=== PATIENT | male | born 1985 | race Caucasian/White ===

== ENCOUNTER 2023-12-15 14:51 | Emergency (ER) | payer OTHER, SELFPAY ==
[2023-12-15 15:31] LABS: % Basophils 0.4 % (0-2); % Eosinophils 1.4 % (0-6); % Immature Granulocytes 0.3 % (0-0.5); % Lymphocytes 29.9 % (20.5-51.1); % Monocytes 7.2 % (1.7-9.3); % Neutrophils 60.8 % (42.2-75.2); Absolute Eosinophils 0.2 10^3/uL (0-0.7); Absolute Lymphocytes 3.4 10^3/uL (1.2-3.4); Absolute Monocytes 0.8 10^3/uL (0.1-0.6); Absolute Neutrophils 6.9 10^3/uL (1.4-6.5); Hematocrit 42.3 % (39.0-52.0); Hemoglobin 15.2 g/dL (13.0-18.0); Mean Corp Hgb Conc. 35.9 g/dL (33.0-37.0); Mean Corpuscular Hgb 30.3 pg (27.0-31.0); Mean Corpuscular Volume 84.4 fL (80.0-94.0); Mean Platelet Volume 9.5 fL (7.4-10.4); Nucleated Red Blood Cells % 0 % (-); Platelet Count 208 10^3/uL (130-400); Red Blood Cell Count 5.01 10^6/uL (4.70-6.10); Red Cell Dist. Width 12.2 % (11.5-14.5); White Blood Cell Count 11.3 10^3/uL (4.8-10.8)
[2023-12-15 15:50] LABS: ALT (SGPT) 42 U/L (0-50); AST (SGOT) 31 U/L (17-59); Albumin 4.9 g/dl (3.5-5.0); Alkaline Phosphatase 78 U/L (38-126); Blood Urea Nitrogen 11 mg/dl (9-20); Calcium 9.4 mg/dl (8.4-10.2); Carbon Dioxide 25 mmol/L (22-30); Chloride 104 mmol/L (98-107); Glucose 93 mg/dl (70-99); Potassium 4.1 mmol/L (3.5-5.1); Sodium 137 mmol/L (135-145); Total Bilirubin 0.7 mg/dl (0.2-1.3); Total Protein 7.6 g/dl (6.3-8.2); eGFR > 60.00
[2023-12-15 15:53] LABS: Troponin I < 0.012 ng/ml
[2023-12-15 19:30] VITALS: BP 135/92
[2023-12-15 19:31] VITALS: BMI 24.4
--- NOTE | 2023-12-15 20:03 | ED.GENMED ---
History of Present Illness
General
Chief Complaint: Breathing Problem
Source: patient
Exam Limitations: none
Time Seen by Provider: 12/15/23 19:24
Travel History
Have you had any contact with someone who has COVID-19?: No
Do you have any symptoms of coronavirus? Fever > 100 degrees, chills, cough, shortness of breath, sore throat, loss of taste or smell, muscle aches, or headache?: No
History of Present Illness
History of Present Illness:
This is a 38 year old male that comes in with c/o chest pain. States that yesterday he has some left sided chest pain. States that it would come and go and only lasted seconds. States that it was almost like when he had an extra heart beat or a
push. States that today he noticed this again and it would last 3-4 min and then go away. State that this happened a couple times today. States that he does have a slight headache. Denies any fever, chills, SOB, abd pain, nausea, vomiting, diarrhea,
dizziness, urinary burning .
Past History
Past History
ED Past Medical History: Arrthythmia (Atrial fib)
ED Past Surgical History: None
Social History
Tobacco: Non-smoker
Alcohol: Occasional
Personal:
Living: with family
Employment: Employed
Review of Systems
Review of Systems
All Other Systems: ROS reviewed and negative except as documented in HPI and ROS
Constitutional: Reports no symptoms; Denies fever or chills
EENT: Reports no symptoms
Respiratory: Reports no symptoms; Denies cough or trouble breathing
Cardiac: Reports chest pain
ABD/GI: Reports no symptoms; Denies abdominal pain, nausea, vomiting or diarrhea
: Reports no symptoms; Denies dysuria, frequency or urgency
Musculoskeletal: Reports no symptoms
Skin: Reports no symptoms
Neurological: Reports headache; Denies dizzy
Psychiatric: Reports no symptoms
Phy Exam
General Physical Exam
General Presentation: well appearing and no apparent distress
General age: appears stated age
General Skin: warm and dry
General Habitus: normal
General Mental: alert
General Hydration: appears well hydrated
ENT Exam
ENT Exam: TM's normal, pharynx normal and neck supple
Eye Exam
Eye Exam: EOMI
Cardiovascular Exam
Cardiovascular Exam: regular rate/rhythm, no edema, no murmur and normal peripheral pulses
Pulmonary Exam
Pulmonary Exam: lungs clear, no respiratory distress, no rales, chest non tender, no crackles, no wheezing and no cough
Gastrointestinal Exam
Gastrointestinal Exam: normal bowel sounds, non tender, soft, no organomegaly, no pulsatile mass and non distended
Musculoskeletal Exam
Musculoskeletal Exam: full ROM and no edema
Skin Exam
Skin Exam: normal color, warm/dry, no rash and no petechia
Psychiatric Exam
Psychiatric Exam: normal mood/affect
Course
Orders/Labs/Results
Orders:
Orders
12/15/23 15:09
Electrocardiogram (*1) Urgent
Reason for Study: Chest Pain
EKG- Treatment ONCE
12/15/23 15:20
Complete Blood Count/With Diff Urgent
Comprehensive Metabolic Panel Urgent
Troponin I Urgent
12/15/23 19:42
CR Chest - 2 Views Urgent
Comment:
Reason For Exam: Chest pain
12/15/23 19:43
Electrocardiogram (*1) Urgent
Reason for Study: Chest Pain
Other Reason for Exam: Repeat with troponin
EKG- Treatment ONCE
12/15/23 20:11
Troponin I Urgent
Abnormal Lab Results
12/15/23
15:20
WBC 11.3 H 10^3/uL
(4.8-10.8)
Absolute Neuts (auto) 6.9 H 10^3/uL
(1.4-6.5)
Absolute Monos (auto) 0.8 H 10^3/uL
(0.1-0.6)
12/15/23 15:20
12/15/23 15:20
WBC very slightly elevated. Otherwise normal labs. Troponin <0.012
Second Troponin <0.012,
Vital Signs
Initial and Last Documented VS:
Initial Vital Signs
Temp Pulse Resp Pulse Ox
98.7 F 71 18 97
12/15/23 15:07 12/15/23 15:07 12/15/23 15:07 12/15/23 15:07
Last Documented Vital Signs
Temp Pulse Resp BP Pulse Ox
97.6 F 64 16 135/92 95
12/15/23 19:30 12/15/23 19:30 12/15/23 19:30 12/15/23 19:30 12/15/23 19:30
MDM/Problems Addressed
Differential Diagnosis Includes:
Musculoskeletal pain, Coronary syndrome
MDM/Problems Addressed:
This is a 38 year old male that comes in with c/o chest pain that has been coming and going since yesterday. States that it was only seconds yesterday and today it may last 3-4 min and then it was gone.
Will check labs. Chest X-ray.
back into see patient. Explained that his both Troponin are normal along with his chest x-ray. Explained that this could be more musculoskeletal. Patient to follow up with the family doctor for recheck. Tylenol or Ibuprofen for pain. Return with
increased or changing pain.
Repeat ECG: rate 62, NSR, right axis. Normal QRS, Negative for ischemia. Checked by Dr. Huynh
Chronic conditions affecting care:
NA
Acute Exacerbation and/or Progression of Chronic Illness:
NA
*Radiology
Radiology exam reviewed: radiology read reviewed (Chest-No acute cardiopulmonary process. )
*Pulse Oximetry
Patient hypoxic: no
*EKG
Interpreted by ED Provider?: Yes
Heart Rate: 50
Rate: bradycardiac
Rhythm: sinus (Edwin)
Noble: normal axis
Interval: normal interval
QRS Pattern: normal QRS
Ischemia: no ischemia
*[facility] Interpretation
Rate: normal
Heart Rate: 63
Rhythm: sinus
*Critical Care Note
Total Time (30-74mins, 75-104mins- exclusive of procedures): Not Applicable
ED Attending Note
-
Portions of this chart may have been created with voice recognition software.� Occasional wrong word or��sound alike� substitutions may have occurred due to the inherent limitations of voice recognition software.
Discharge Plan
Departure
Patient Disposition: Home (Routine Discharge)
Date of Disposition: 12/15/23
Time of Disposition: 21:35
Patient with high blood pressure during this ER visit?: Yes
Condition: Good
Covid-19: Not Applicable
Discharge Problem:
Chest pain
Instructions: Chest Pain PCP Follow Up, BLOOD PRESSURE
Referrals:
Juhi Gunn MD [Family Provider] - Follow up in 2-3 days
Activity Restrictions/Additional Instructions:
As discussed, your blood work shows that your WBC are very slightly elevated. Your Both troponin which are specific for the heart are normal. Your chest x-ray is normal. Please follow up with the family doctor for recheck. IF YOU HAVE INCREASED OR
CHANGING PAIN, OR YOU HAVE ANY OTHER CONCERNS PLEASE RETURN TO THE EMERGENCY ROOM.
Interventions
Interventions:
*Risk Screen - Suicide Last Done: 12/15/23 15:08
*General Assessment Last Done: 12/15/23 15:08
*Neglect/Abuse Screening Last Done: 12/15/23 15:08
ED- Cardiac Assessment Last Done: 12/15/23 19:34
ED- Pulmonary Assessment Last Done: 12/15/23 19:34
[2023-12-15 20:42] LABS: Troponin I < 0.012 ng/ml
[2023-12-15 21:59] VITALS: BP 121/85
== END 2023-12-15 22:02 | disposition home or self-care (01) ==
LOC: EMR 14:51
PROVIDERS: Clinical Nurse Specialist Family Health; Emergency Medicine; EMERGENCY PHYSICIAN Emergency Medicine; FAMILY PHYSICIAN Family Medicine
DX: R07.89 Other chest pain (principal); R51.9 Headache, unspecified; R03.0 Elevated blood-pressure reading, without diagnosis of hypertension
CPT/HCPCS: 99285; 71046; 80053; 84484; 85025; 93005